=== PATIENT | female | born 1955 | race Caucasian/White ===

== ENCOUNTER 2017-06-13 08:56 | Emergency (ER) | payer OTHER ==
--- NOTE | 2017-06-13 09:13 | UC ---
[facility] HPI - HPI Summary HPI Summary: patient has had some tooth pain on the left lower jaw, bit some food yesterday, nos has increased pain and swelling of the lower jaw. - History of Current Complaint Stated Complaint: DENTAL PAIN Time Seen by Provider: 06/13/17 09:02 Hx Obtained From: Patient Hx Last Menstrual Period: 2004 ?: No Onset/Duration: Sudden Onset, Lasting Days Severity: Moderate Related History: Previous Dental Care on Same Tooth, Swelling - Allergies/Home Medications Allergies/Adverse Reactions: Allergies Allergy/AdvReac Type Severity Reaction Status Date / Time Kiwi Extract Allergy Mouth Verified 06/13/17 09:17 Itches [place] Pulp Allergy Mouth Verified 06/13/17 09:17 Itches [place] Allergy Mouth Verified 06/13/17 09:17 Itches Sulfa Drugs Allergy Swelling Verified 06/13/17 09:17 tounge environmental Allergy Itchying, Uncoded 06/13/17 09:17 sneezing Fresh Peaches Allergy Mouth Uncoded 06/13/17 09:17 Itches pistachio Allergy Mouth Uncoded 06/13/17 09:17 Itches PMH/Surg Hx/FS Hx/Imm Hx Previously Healthy: Yes - Surgical History Surgical History: Yes Surgery Procedure, Year, and Place: 2004 partial hysterectomy. 1960 tonsils removed. 2007 right hip replacement. 1985 - Family History Known Family History: Positive: None Negative: Cardiac Disease, Hypertension - Social History Alcohol Use: Weekly Alcohol Amount: 2-3 daily Substance Use Type: None Smoking Status (MU): Heavy Every Day Tobacco Smoker Type: Cigarettes Amount Used/How Often: 1/2 PPD, 3 cigarettes since Wednesday Length of Time of Smoking/Using Tobacco: 40 Years Have You Smoked in the Last Year: Yes - Immunization History Most Recent Influenza Vaccination: not this season Review of Systems Constitutional: Negative Skin: Negative Eyes: Negative ENT: Dental Pain, Ear Ache Respiratory: Negative Cardiovascular: Negative Gastrointestinal: Negative Genitourinary: Negative Motor: Negative Neurovascular: Negative Musculoskeletal: Negative Neurological: Negative Psychological: Negative All Other Systems Reviewed And Are Negative: Yes Physical Exam Triage Information Reviewed: Yes Appearance: Well-Nourished, Ill-Appearing, Pain Distress Vital Signs Reviewed: Yes Eye Exam: Normal ENT Exam: Normal Dental: Positive: Cellulitis @, Other: - dental corby and swelling of the gum around the past molar Neck exam: Normal Neck: Positive: Supple, Nontender, No Lymphadenopathy Respiratory Exam: Normal Respiratory: Positive: Chest non-tender, Lungs clear, Normal breath sounds Cardiovascular Exam: Normal Abdominal Exam: Normal Bowel Sounds: Positive: Present Musculoskeletal Exam: Normal Neurological Exam: Normal Psychological Exam: Normal Skin Exam: Normal Dental Complaint Course/Dx - Course Course Of Treatment: hx obtained, exam performed ,meds reviewed, treated for dental infection - Differential Dx/Diagnosis Differential Diagnosis/Dx: Dental Caries Provider Diagnoses: dental corby. dental infection. submandibular lymphadenopathy Discharge - Discharge Plan Condition: Stable Disposition: HOME Patient Education Materials: Dental Abscess (ED) Additional Instructions: 1. take the medication as prescribed. 2. Coconut oil swishes multiple times a day 3. ibuprofen for pain 4. Follow up with the Dentist
[2017-06-13 09:25] VITALS: BP 185/94
== END 2017-06-13 09:30 | disposition home or self-care (01) ==
LOC: UCCORT 08:56
DX: K02.9 Dental caries, unspecified (principal); K04.7 Periapical abscess without sinus; R59.1 Generalized enlarged lymph nodes; Z90.711 Acquired absence of uterus with remaining cervical stump; Z96.641 Presence of right artificial hip joint; F17.210 Nicotine dependence, cigarettes, uncomplicated
CPT/HCPCS: 99212; G0463

== ENCOUNTER 2019-09-23 13:28 | Emergency (ER) | payer OTHER ==
[2019-09-23 13:47] VITALS: BP 164/83
--- NOTE | 2019-09-27 21:14 | UC ---
Hand/Wrist HPI - HPI Summary HPI Summary: Very nice 64-year-old female who was putting on her shoe when she had some pain in her left index finger. She denies any other injury. She did feel and hear a "snap" when she did it. - History Of Current Complaint Chief Complaint: UCUpperExtremity Stated Complaint: LEFT INDEX FINGER INJURY Time Seen by Provider: 09/23/19 13:46 Hx Obtained From: Patient Hx Last Menstrual Period: 2004 ?: No Onset/Duration: Sudden Onset Severity Initially: Mild Severity Currently: Mild Pain Intensity: 0 Pain Scale Used: 0-10 Numeric Character Of Pain: Dull, Aching Aggravating Factor(s): Movement Alleviating Factor(s): Nothing Associated Signs And Symptoms: Positive: Swelling, Redness - Allergies/Home Medications Allergies/Adverse Reactions: Allergies Allergy/AdvReac Type Severity Reaction Status Date / Time Sulfa (Sulfonamide Allergy See Comment Verified 09/23/19 13:49 Antibiotics) environmental Allergy Itchying, Uncoded 06/13/17 09:17 sneezing Fresh Peaches Allergy Mouth Uncoded 06/13/17 09:17 Itches pistachio Allergy Mouth Uncoded 06/13/17 09:17 Itches PMH/Surg Hx/FS Hx/Imm Hx Previously Healthy: Yes Cardiovascular History: Hypertension - Surgical History Surgical History: Yes Surgery Procedure, Year, and Place: 2004 partial hysterectomy. 1960 tonsils removed. 2007 right hip replacement. 1985 - Family History Known Family History: Positive: None Negative: Cardiac Disease, Hypertension - Social History Alcohol Use: Daily Alcohol Amount: 2-3 daily Substance Use Type: None Smoking Status (MU): Heavy Every Day Tobacco Smoker Type: Cigarettes Amount Used/How Often: 1/2 PPD Length of Time of Smoking/Using Tobacco: 40 Years Have You Smoked in the Last Year: Yes - Immunization History Most Recent Influenza Vaccination: not this season Review of Systems All Other Systems Reviewed And Are Negative: Yes Skin: Positive: Other - Mild redness and swelling to distal finger. Musculoskeletal: Positive: Other: - Good peripheral pulses, neuro sensation capillary refill, full range of motion. Tenderness and mild redness distal right index finger. Is Patient Immunocompromised?: No Physical Exam Triage Information Reviewed: Yes Appearance: Well-Appearing, No Pain Distress, Well-Nourished Vital Signs: Initial Vital Signs Temp 98.0 F 09/23/19 13:41 Pulse 89 09/23/19 13:41 Resp 18 09/23/19 13:41 BP 164/83 09/23/19 13:41 Pulse Ox 99 09/23/19 13:41 Vital Signs Reviewed: Yes Musculoskeletal: Positive: Strength Intact, ROM Intact, Other: - Swelling and redness to the distal right index finger. Good peripheral pulses neuro sensation and capillary refill. Neurological Exam: Normal Psychological Exam: Normal Skin: Positive: Other - See above notes. Diagnostics - Radiology No standard instances Radiology Interpretation Completed By: Radiologist - Patient Name: MARIA FERNANDA ROBERTS Medical Record#: [id number] Ordering Physician: Trudy Osborn NP Acct.#: [id number] : 1955 Age: 64 Sex: F Location: [facility] Exam Date: 09/23/19 1348 ADM Status: REG ER Order Information: HAND - LEFT MINIMUM 3 VIEWS Accession Number: [id number] CPT: 62361 Indication: Left hand pain and swelling. 4 views of the left hand demonstrates degenerative changes of the first carpal metacarpal joint with lateral subluxation. No fracture is noted. IMPRESSION: Degenerative changes of the first carpal metacarpal joint without fracture. < Electronically signed by Shazia Kim MD in [place]> 09/23/191425 Dictated By: Shazia Kim MD Dictated Date/Time: 09/23/191424 Transcribed Date/Time: 09/23/191424 Copy to: CC:Smomer Lakhani MD; Trudy Osborn NP; Devante Mak MD Imaging - [facility] [address] [address] ph [phone] ph ([phone]) ph ) This report is only to be considered final once signed by the Provider(s) as displayed in the "<Electronically Signed by >" field (s). Absence of a signature indicates the report is in a draft status and still needs to be finalized. In the event this document was created by someone other than the signing Provider, the individual initiating the document will be listed in the "Entered by:" or "Dictated by:" [email or web address]. 1 of 1 Hand/Wrist Course/Dx - Course Course Of Treatment: Hand x-ray: IMPRESSION: Degenerative changes of the first carpal metacarpal joint without fracture. The patient is comfortable here. She can try heat to the sore area definite follow-up with her primary care provider if no improvement. I did give her the name of the hand specialist as well. - Differential Dx/Diagnosis Provider Diagnosis: Finger sprain Discharge ED - Sign-Out/Discharge Documenting (check all that apply): Patient Departure All imaging exams completed and their final reports reviewed: Yes - Discharge Plan Condition: Fair Disposition: HOME Patient Education Materials: Arthritis (ED) Referrals: Sommer Lakhani MD [Primary Care Provider] - Starla Mendez MD [Medical Doctor] - Additional Instructions: Elevate as much as possible, warm moist compresses to the area 4-6 times a day for 20 minutes each time. Avoid repetitive motion. Definite follow-up with the orthopedist on Wednesday by phone for further care. - Billing Disposition and Condition Condition: FAIR Disposition: Home
== END 2019-09-23 14:55 | disposition home or self-care (01) ==
LOC: UCCORT 13:28
DX: S63.611A Unspecified sprain of left index finger, initial encounter (principal); X50.9XXA Other and unspecified overexertion or strenuous movements or postures, initial encounter; Y93.89 Activity, other specified; Y92.9 Unspecified place or not applicable; M19.042 Primary osteoarthritis, left hand; I10 Essential (primary) hypertension; Z96.641 Presence of right artificial hip joint; Z88.2 Allergy status to sulfonamides; Z91.018 Allergy to other foods; F17.210 Nicotine dependence, cigarettes, uncomplicated
CPT/HCPCS: 99211; G0463